=== PATIENT | female | born 1935 | race Caucasian/White ===

== ENCOUNTER 2022-08-14 07:35 | Inpatient (IN) | payer MEDICARE, OTHER ==
[2022-08-14] MEDS ORDERED: Atropine Sulfate 1 mg/10 ml Syringe ONE (07:40)
[2022-08-14] MEDS ORDERED: EPINEPHrine 1 MG/10 ML Abboject SYRINGE ONE (07:40)
[2022-08-14] MEDS ORDERED: Calcium Chloride 1 GM/10 ML Abboject SYRINGE ONE (07:40)
[2022-08-14] MEDS ORDERED: Ondansetron PF 4 MG/2 ML Vial ONE (07:55)
[2022-08-14] MEDS ORDERED: Rocuronium Bromide 10 MG/ML (10ML VIAL) ONE (07:57)
[2022-08-14] MEDS ORDERED: Verapamil 5 MG/2 ML VIAL ONE (07:58)
[2022-08-14] MEDS ORDERED: Lidocaine 1% (PF) 30 ML VIAL ONE ×2 (07:58→09:09)
[2022-08-14] MEDS ORDERED: Adenosine 6 MG/2 ML VIAL ONE (07:58)
[2022-08-14] MEDS ORDERED: Heparin 10,000 UNITS/ 10 ML VIAL ONE (08:01)
[2022-08-14] MEDS ORDERED: Fentanyl CADD 100 ML IV SCH (08:15)
[2022-08-14] MEDS ORDERED: Nitroglycerin 100MG/250ML BOT 250 ML ONE (08:15)
[2022-08-14 08:29] LABS: ALT (SGPT) 90 U/L (8-55); AST (SGOT) 144 U/L (5-34); Albumin 3.3 g/dL (3.4-4.8); Alkaline Phosphatase 76 U/L (40-110); Anion Gap 18 mmol/L (10-20); BUN (Urea Nitrogen) 19 mg/dL (9.8-20.1); Bilirubin, Total 0.7 mg/dL (0.2-1.2); CK (CPK) 129 U/L (29-168); Calc. Creatinine Clearance 0 mL/min (70-130); Calcium 8.2 mg/dL (7.8-10.44); Carbon Dioxide 18 mmol/L (23-31); Chloride 107 mmol/L (98-107); Estimated GFR 31; Globulin 2.2 g/dL (2.4-3.5); Glucose 263 mg/dL (83-110); Lipase 17 U/L (8-78); Potassium 3.4 mmol/L (3.5-5.1); Protein, Total 5.5 g/dL (5.8-8.1); Sodium 140 mmol/L (136-145)
[2022-08-14 08:36] LABS: INR-International Normal Ratio 1.1; PTT 28.7 sec (22.9-36.1); Prothrombin Time 15.1 sec (12.0-14.7)
[2022-08-14] MEDS ORDERED: Iopamidol 370 76% 50 ML VIAL FS ONE (08:43)
[2022-08-14] MEDS ORDERED: Iopamidol 370 76% 100 ML VIAL ONE (08:43)
[2022-08-14 08:52] LABS: #Eosinphils 0.1 thou/uL (0.0-0.7); #Lymphocytes 1.9 thou/uL (1.20-3.40); #Monocytes 0.4 thou/uL (0.11-0.59); #Neutrophils 3.9 thou/uL (1.40-6.50); %Basophils 0.7 % (0.0-1.0); %Eosinophils 2.2 % (0.0-10.0); %Lymphocytes 29.9 % (21.0-51.0); %Monocytes 5.8 % (0.0-10.0); %Neutrophils 61.4 % (42.0-75.0); Hemoglobin 11.5 g/dL (12.0-16.0); Mean Corpuscular HGB CONC 32.8 g/dL (32.0-36.0); Mean Corpuscular Hemoglobin 33.1 pg (27.0-31.0); Mean Platelet Volume 10.5 fL (7.4-10.4); Platelet Count 111 10x3/uL (130-400); Platelet Morphology Comment Appears Decreased; RBC Distribution Width 12.5 % (11.5-14.5); RBC Morphology Normal; Red Blood Cell (RBC) Count 3.46 mill/uL (4.20-5.40); White Blood Cell (WBC) Count 6.4 10x3/uL (4.8-10.8)
[2022-08-14] MEDS ORDERED: Clindamycin/D5W 900 mg/50 ml Premix Bag ONE (09:05)
[2022-08-14] MEDS ORDERED: Gentamicin 80 MG/2 ML VIAL ONE (09:09)
[2022-08-14 09:14] LABS: CKMB 5.8 ng/mL (0-6.6)
[2022-08-14] MEDS ORDERED: FENTANYL 50 MCG/ML 1 ML VIAL ONE (09:46)
[2022-08-14] MEDS ORDERED: Midazolam HCl 2 mg/2 ml Vial ONE (10:12)
[2022-08-14] MEDS ORDERED: niCARdipine 25 MG in Sodium Chloride 0.9% 250 ML 250 ML IVPB SCH (11:45)
[2022-08-14 12:49] LABS: Actual Bicarbonate (HCO3a) 21.8 mEq/L (22-28); Base Excess (BEa) 1.2 mEq/L (-2.0 to +3.0); Calcium, Ionized (arterial) 1.18 mmol/L (1.12-1.30); Carboxyhemoglobin (COHb) 0.4 gm% (0.0-3.0); Hemoglobin (Hb) 13.9 g/dL (12.0-16.0); O2 Tension (PaO2), arterial 217.9 mmHg (> 60.0); Potassium - ABG Lab 3.38 mmol/L (3.70-5.30); pH, Arterial 7.56 (7.35-7.45)
[2022-08-14 12:51] LABS: ALV-art Gradient 107.725 mmHg (0-20); CO2 Tension 24.7 mmHg (35.0-45.0); Puncture Site Arterial Line
[2022-08-14 13:08] VITALS: BMI 23.3
[2022-08-14] MEDS ORDERED: Dexmedetomidine In 0.9 % NaCl 100 ML IVPB SCH (15:00)
[2022-08-14] MEDS ORDERED: Morphine 4 MG/ML VIAL SLOW IVP PRN (15:32)
[2022-08-14] MEDS ORDERED: HumaLOG 300 UNITS/3 ML VIAL SC PRN (16:45)
[2022-08-14] MEDS ORDERED: Electrolyte Replacement Protocol 1 EACH FS SCH (16:45)
[2022-08-14] MEDS ORDERED: HumaLOG 300 UNITS/3 ML VIAL SC SCH (16:45)
[2022-08-14] MEDS ORDERED: Potassium Chloride 20 MEQ TAB PO SCH (17:00)
[2022-08-14] MEDS: Lactated Ringer's 1,000 ML IV SCH (18:05)
[2022-08-14] MEDS: Famotidine 20 MG TAB PO SCH (20:01)
[2022-08-14 22:19] LABS: Potassium 4.3 mmol/L (3.5-5.1)
[2022-08-14] MEDS ORDERED: Acetaminophen 500 MG TAB PO SCH (23:00)
[2022-08-15] MEDS ORDERED: traMADol HCl 50 MG TAB PO SCH (04:45)
[2022-08-15 05:46] LABS: #Eosinphils 0.1 thou/uL (0.0-0.7); #Lymphocytes 1.1 thou/uL (1.20-3.40); #Monocytes 1.1 thou/uL (0.11-0.59); #Neutrophils 6.6 thou/uL (1.40-6.50); %Basophils 0.2 % (0.0-1.0); %Eosinophils 0.9 % (0.0-10.0); %Lymphocytes 12.5 % (21.0-51.0); %Monocytes 11.9 % (0.0-10.0); %Neutrophils 74.6 % (42.0-75.0); Hemoglobin 11.2 g/dL (12.0-16.0); Mean Corpuscular HGB CONC 32.7 g/dL (32.0-36.0); Mean Corpuscular Hemoglobin 33.3 pg (27.0-31.0); Mean Platelet Volume 10.1 fL (7.4-10.4); Platelet Count 118 10x3/uL (130-400); RBC Distribution Width 12.6 % (11.5-14.5); Red Blood Cell (RBC) Count 3.37 mill/uL (4.20-5.40); White Blood Cell (WBC) Count 8.8 10x3/uL (4.8-10.8)
[2022-08-15 05:52] LABS: ALT (SGPT) 262 U/L (8-55); AST (SGOT) 214 U/L (5-34); Albumin 3.2 g/dL (3.4-4.8); Alkaline Phosphatase 108 U/L (40-110); Anion Gap 12 mmol/L (10-20); BUN (Urea Nitrogen) 24 mg/dL (9.8-20.1); Bilirubin, Total 0.9 mg/dL (0.2-1.2); Calc. Creatinine Clearance 27 mL/min (70-130); Calcium 8.7 mg/dL (7.8-10.44); Carbon Dioxide 23 mmol/L (23-31); Chloride 108 mmol/L (98-107); Estimated GFR 37; Globulin 2.3 g/dL (2.4-3.5); Glucose 80 mg/dL (83-110); Potassium 4.2 mmol/L (3.5-5.1); Protein, Total 5.5 g/dL (5.8-8.1); Sodium 139 mmol/L (136-145)
[2022-08-15] MEDS ORDERED: Levothyroxine Sodium 25 MCG TAB PO SCH (06:00)
[2022-08-15] MEDS: Famotidine 20 MG TAB PO SCH (08:06)
[2022-08-15] MEDS: Lactated Ringer's 1,000 ML IV SCH (08:07)
[2022-08-15 10:31] VITALS: BP 108/58
[2022-08-15] MEDS ORDERED: Aspirin 81 mg Enteric Coated Tablet PO SCH (12:15)
[2022-08-15 14:05] VITALS: TEMP 97.4
[2022-08-15] MEDS ORDERED: Carvedilol 3.125 MG TAB PO SCH (21:00)
[2022-08-15] MEDS ORDERED: Atorvastatin Calcium 20 MG TAB PO SCH (21:00)
[2022-08-16] MEDS ORDERED: Aspirin 81 mg Enteric Coated Tablet PO SCH (09:00)
[2022-08-16] MEDS ORDERED: Famotidine 20 MG TAB PO SCH (09:00)
[2022-08-16] MEDS ORDERED: Clopidogrel Bisulfate 75 MG TAB PO SCH (09:00)
== END 2022-08-15 15:33 | disposition home or self-care (01) | DRG 242 ==
LOC: EDBD 07:35 → ERS 07:35 → CCU 08:20 → CCL 08:20 → CCU 11:50
PROVIDERS: ADMIT Internal Medicine Cardiovascular Disease; ATTEND Internal Medicine Cardiovascular Disease
PROC: 0BH17EZ Insertion of Endotracheal Airway into Trachea, Via Natural or Artificial Opening (ICD-10-PCS; principal; 2022-08-14)
PROC: 0JH606Z Insertion of Pacemaker, Dual Chamber into Chest Subcutaneous Tissue and Fascia, Open Approach (ICD-10-PCS; 2022-08-14)
PROC: 02H63JZ Insertion of Pacemaker Lead into Right Atrium, Percutaneous Approach (ICD-10-PCS; 2022-08-14)
PROC: 5A1935Z Respiratory Ventilation, Less than 24 Consecutive Hours (ICD-10-PCS; 2022-08-14)
PROC: 0DH67UZ Insertion of Feeding Device into Stomach, Via Natural or Artificial Opening (ICD-10-PCS; 2022-08-14)
PROC: 3E0G76Z Introduction of Nutritional Substance into Upper GI, Via Natural or Artificial Opening (ICD-10-PCS; 2022-08-14)
PROC: 4A023N7 Measurement of Cardiac Sampling and Pressure, Left Heart, Percutaneous Approach (ICD-10-PCS; 2022-08-14)
PROC: 5A1223Z Performance of Cardiac Pacing, Continuous (ICD-10-PCS; 2022-08-14)
PROC: B2111ZZ Fluoroscopy of Multiple Coronary Arteries using Low Osmolar Contrast (ICD-10-PCS; 2022-08-14)
PROC: 02HK3JZ Insertion of Pacemaker Lead into Right Ventricle, Percutaneous Approach (ICD-10-PCS; 2022-08-14)
DX: I44.2 Atrioventricular block, complete (principal); I21.4 Non-ST elevation (NSTEMI) myocardial infarction; J96.00 Acute respiratory failure, unspecified whether with hypoxia or hypercapnia; E87.3 Alkalosis; N17.9 Acute kidney failure, unspecified; I10 Essential (primary) hypertension; I25.10 Atherosclerotic heart disease of native coronary artery without angina pectoris; D64.9 Anemia, unspecified; D69.6 Thrombocytopenia, unspecified; E87.6 Hypokalemia; R73.9 Hyperglycemia, unspecified; E88.09 Other disorders of plasma-protein metabolism, not elsewhere classified; R74.01 Elevation of levels of liver transaminase levels; I47.1 Supraventricular tachycardia; E03.9 Hypothyroidism, unspecified; I95.9 Hypotension, unspecified; R00.1 Bradycardia, unspecified; Z95.5 Presence of coronary angioplasty implant and graft; Z79.82 Long term (current) use of aspirin; Z79.899 Other long term (current) drug therapy; Z79.890 Hormone replacement therapy; Z79.02 Long term (current) use of antithrombotics/antiplatelets; Z85.3 Personal history of malignant neoplasm of breast; Z88.0 Allergy status to penicillin; Z92.3 Personal history of irradiation
CPT/HCPCS: 33208; 33210; 36415; 36416; 71045; 75820; 80053; 82550; 82553; 82805; 83690; 83880; 84484; 85025; 85610; 85730; 93005; 93010; 93458; 93798; 94002; 99152; 99153; C1769; J0153; J0171; J0461; J1580; J1644; J2001; J2250; J2405; J3010; J3490; J7050; J7120